=== PATIENT | female | born 1960 | race Caucasian/White ===

== ENCOUNTER 2023-05-19 06:58 | Emergency (ER) | payer OTHER ==
[~2023-05-19] VITALS: Ht 160 cm; Wt 91.2 kg
[~2023-05-19 06:58] MED LIST: ATENOLOL100 MG; FLONASE16 GM NS; KETO10TA2 PO; LISINOPRIL10 MG; SEPTRA DS TABLE1 TAB PO; TAMS0.4C PO; ZYRTEC10 MG PO
[2023-05-19] MEDS ORDERED: TOPROL XL100 M1 PO (07:09)
[2023-05-19] MEDS ORDERED: SYNTHROID112 MCG PO (07:10)
== END 2023-05-19 09:54 ==
LOC: ER 06:58
DX: R53.81 Other malaise (principal); J00 Acute nasopharyngitis [common cold]; Z20.822 Contact with and (suspected) exposure to COVID-19

== ENCOUNTER 2024-12-02 18:23 | Emergency (ER) | payer OTHER ==
[~2024-12-02] VITALS: Ht 160 cm; Wt 88.5 kg
[~2024-12-02 18:23] MED LIST changes: +SYNTHROID112 MCG PO; +TOPROL XL100 M1 PO
[2024-12-02] MEDS ORDERED: FAMOTIDINE/PF 20 MG in 0.9 % SODIUM CHLORIDE 8 ML IV PUSH STA (19:16)
[2024-12-02] MEDS ORDERED: HYOSCYAMINE SULFATE 0.125 MG TAB.SUBL SL ONE (19:30)
[2024-12-02] MEDS ORDERED: 0.9 % SODIUM CHLORIDE 1,000 ML IV SCH (19:30)
[2024-12-02] MEDS ORDERED: PIPERACILLIN/TAZOBACTAM SODIUM 3.375 GM VIAL IV ONE (19:30)
[2024-12-02 20:16] LABS: BASO % 0.5 % (0.1-1.2); EOS # 0.19 (0.04-0.54); EOS % 1.5 % (0.7-7.0); LYMPH # 2.98 (1.18-3.74); LYMPH % 23.1 % (19.3-53.1); MEAN PLATELET VOLUME 10.40 fl (9.4-12.4); MONO # 1.27 (0.24-0.82); MONO % 9.8 % (4.7-12.5); NEUT # 8.35 (1.56-6.13); NEUT % 64.8 % (34.0-71.1); RED CELL DISTRIBUTION WIDTH 12.9 % (11.6-14.4)
[2024-12-02 20:43] LABS: URINE APPEARANCE Clear; URINE BILIRRUBIN Negative (NEGATIVE); URINE BLOOD Moderate; URINE COLOR Yellow; URINE GLUCOSE Negative (NEGATIVE); URINE KETONE Negative (NEGATIVE); URINE LEUKOCYTE Negative; URINE NITRATE Negative; URINE PROTEIN Negative (NEGATIVE); URINE UROBILINOGEN 0.2 E.U./dl
[2024-12-02 20:47] LABS: URINE BACTERIA 5.9 uL (0.0-1933); URINE EPITHELIAL CELLS 3.5 uL (0.0-38.8); URINE RBC 7.7 uL (0.0-20.8); URINE WBC 12.7 uL (0.0-23.2)
[2024-12-02 20:48] LABS: URINE CAST 0.73 uL (0.0-1.40)
[2024-12-02 20:51] LABS: ALT/SGPT 22.0 U/L (12-78); AST/SGOT 14.0 U/L (15-37); BILIRUBIN TOTAL 0.34 mg/dL (0.3-1.2); BUN CREA RATIO 23.0 (7.0-25.0); CREATININE SERUM 1.24 mg/dL (0.55-1.02); GFR 43.83; GLOBULINA 4.2 G/DL (2.4-3.5); GLUCOSE FASTING 110.0 mg/dL (65-100); OSMOLALITY SERUM 290.0 MOSM/KG (275-295)
[2024-12-02] MEDS ORDERED: METRONIDAZOLE500 MG PO (23:57)
[2024-12-02] MEDS ORDERED: LEVSIN/SL0.125 MG SL (23:57)
[2024-12-02] MEDS ORDERED: CIPRO500 MG PO (23:57)
[2024-12-02] MEDS ORDERED: OMEPRAZOLE40 MG PO (23:57)
== END 2024-12-03 01:34 | disposition home or self-care (01) ==
LOC: ER 18:23
PROVIDERS: General Practice
DX: K57.32 Diverticulitis of large intestine without perforation or abscess without bleeding (principal); R10.32 Left lower quadrant pain